=== PATIENT | female | born 1970 | race Caucasian/White ===

== ENCOUNTER 2021-01-31 15:34 | Inpatient (IN) | payer OTHER, SELFPAY ==
[~2021-01-31 15:34] MED LIST: Iopamidol-370 76% 500 ML 1 ML ONE
[2021-01-31] MEDS ORDERED: Midazolam HCl 2 mg/2 ml Vial ONE (15:42)
[2021-01-31] MEDS ORDERED: Fentanyl 100 MCG/2 ML VIAL ONE (15:48)
[2021-01-31 16:05] LABS: #Basophils 0.1 thou/uL (0.0-0.2); #Eosinphils 0.2 thou/uL (0.0-0.7); #Lymphocytes 3.7 thou/uL (1.20-3.40); #Monocytes 0.8 thou/uL (0.11-0.59); #Neutrophils 10.1 thou/uL (1.40-6.50); %Basophils 0.4 % (0.0-1.0); %Eosinophils 1.5 % (0.0-10.0); %Lymphocytes 24.7 % (21.0-51.0); %Monocytes 5.2 % (0.0-10.0); %Neutrophils 68.2 % (42.0-75.0); Hemoglobin 13.7 g/dL (12.0-16.0); Mean Corpuscular HGB CONC 31.9 g/dL (32.0-36.0); Mean Corpuscular Hemoglobin 26.4 pg (27.0-31.0); Mean Corpuscular Volume 82.8 fL (78.0-98.0); Mean Platelet Volume 10.3 fL (7.4-10.4); Platelet Count 232 thou/uL (130-400); RBC Distribution Width 14.1 % (11.5-14.5); Red Blood Cell (RBC) Count 5.19 mill/uL (4.20-5.40); White Blood Cell (WBC) Count 14.8 thou/uL (4.8-10.8)
[2021-01-31 16:21] LABS: ALT (SGPT) 23 U/L (8-55); AST (SGOT) 26 U/L (5-34); Albumin 4.2 g/dL (3.5-5.0); Alkaline Phosphatase 104 U/L (40-110); Anion Gap 19 mmol/L (10-20); BUN (Urea Nitrogen) 15 mg/dL (9.8-20.1); Bilirubin, Total 0.5 mg/dL (0.2-1.2); Calc. Creatinine Clearance 0 mL/min (70-130); Calcium 9.6 mg/dL (7.8-10.44); Carbon Dioxide 17 mmol/L (22-29); Chloride 106 mmol/L (98-107); Globulin 3.2 g/dL (2.4-3.5); Glucose 132 mg/dL (70-105); Potassium 3.6 mmol/L (3.5-5.1); Protein, Total 7.4 g/dL (6.0-8.3); Sodium 138 mmol/L (136-145)
[2021-01-31] MEDS ORDERED: Ketorolac Tromethamine 30 MG/ML VIAL ONE (16:31)
[2021-01-31] MEDS ORDERED: Naloxone HCl 0.4 mg/ml Vial IV PRN (16:32)
[2021-01-31] MEDS ORDERED: Ondansetron PF 4 MG/2 ML Vial IVP PRN (16:32)
[2021-01-31] MEDS ORDERED: Promethazine HCl 25 MG/ML VIAL IM PRN (16:32)
[2021-01-31] MEDS ORDERED: diphenhydrAMINE 25 MG CAP PO PRN (16:32)
[2021-01-31] MEDS ORDERED: Ketorolac Tromethamine 30 MG/ML VIAL IVP PRN (16:32)
[2021-01-31] MEDS ORDERED: diphenhydrAMINE 50 MG/ML VIAL IVP PRN (16:32)
[2021-01-31] MEDS ORDERED: diphenhydrAMINE 50 MG/ML VIAL IM PRN (16:32)
[2021-01-31] MEDS ORDERED: Communication Order-Pharmacy FS SCH (16:45)
[2021-01-31] MEDS ORDERED: Dextrose 50% Abboject 50 ML SYRINGE SLOW IVP PRN (16:58)
[2021-01-31] MEDS ORDERED: Dextrose 5% in Water 1,000 ML IV PRN (16:58)
[2021-01-31] MEDS ORDERED: hydrALAZINE 20 MG/ML VIAL SLOW IVP PRN (16:58)
[2021-01-31 17:31] LABS: Phosphorus 2.1 mg/dL (2.3-4.7)
[2021-01-31] MEDS ORDERED: Morphine 4 MG/ML VIAL ONE (17:32)
[2021-01-31] MEDS ORDERED: Ondansetron PF 4 MG/2 ML Vial ONE (17:39)
[2021-01-31] MEDS ORDERED: Magnesium Sulfate 2 GM in Sodium Chloride 0.9% 100 ML IVPB SCH (17:45)
[2021-01-31] MEDS ORDERED: Potassium Phosphate 30 MMOL, Magnesium Sulfate 2 GM in Sodium Chloride 0.9% 250 ML IVPB SCH (18:30)
[2021-01-31] MEDS: Sodium Chloride 0.9% 1,000 ML IV SCH (20:15)
[2021-01-31] MEDS: Famotidine 20 MG TAB PO SCH (20:16)
[2021-01-31] MEDS: HYDROmorphone 10 mg/100 ml CADD IVPB PRN (20:20)
[2021-01-31 22:41] VITALS: BMI 36.7
[2021-02-01] MEDS: Sodium Chloride 0.9% 1,000 ML IV SCH ×3 (05:02→14:02)
[2021-02-01 06:20] LABS: #Eosinphils 0.1 thou/uL (0.0-0.7); #Lymphocytes 1.3 thou/uL (1.20-3.40); #Monocytes 0.6 thou/uL (0.11-0.59); #Neutrophils 3.8 thou/uL (1.40-6.50); %Basophils 0.6 % (0.0-1.0); %Eosinophils 1.1 % (0.0-10.0); %Lymphocytes 23.3 % (21.0-51.0); %Monocytes 9.6 % (0.0-10.0); %Neutrophils 65.4 % (42.0-75.0); Mean Corpuscular HGB CONC 31.3 g/dL (32.0-36.0); Mean Corpuscular Hemoglobin 26.3 pg (27.0-31.0); Mean Corpuscular Volume 84.1 fL (78.0-98.0); Mean Platelet Volume 10.4 fL (7.4-10.4); Platelet Count 152 thou/uL (130-400); RBC Distribution Width 14.2 % (11.5-14.5); Red Blood Cell (RBC) Count 4.18 mill/uL (4.20-5.40); White Blood Cell (WBC) Count 5.8 thou/uL (4.8-10.8)
[2021-02-01 07:05] LABS: Anion Gap 12 mmol/L (10-20); BUN (Urea Nitrogen) 18 mg/dL (9.8-20.1); Calc. Creatinine Clearance 150 mL/min (70-130); Calcium 8.4 mg/dL (7.8-10.44); Carbon Dioxide 23 mmol/L (22-29); Chloride 108 mmol/L (98-107); Glucose 95 mg/dL (70-105); Magnesium 2.3 mg/dL (1.6-2.6); Phosphorus 4.8 mg/dL (2.3-4.7); Potassium 4.2 mmol/L (3.5-5.1); Sodium 139 mmol/L (136-145)
[2021-02-01] MEDS: Polyethylene Glycol 3350 17 GM Packet PO SCH (09:12)
[2021-02-01] MEDS: Famotidine 20 MG TAB PO SCH ×2 (09:12→21:25)
[2021-02-01] MEDS: Senokot 8.6 MG TAB PO SCH (09:12)
[2021-02-01] MEDS: Ketorolac Tromethamine 30 MG/ML VIAL IVP SCH ×2 (11:45→18:21)
[2021-02-01] MEDS: traMADol HCl 50 MG TAB PO SCH ×2 (11:45→18:20)
[2021-02-01] MEDS: Acetaminophen 500 MG TAB PO SCH ×3 (11:45→19:41)
[2021-02-01] MEDS: Gabapentin 300 MG CAP PO SCH ×2 (14:01→21:25)
[2021-02-02] MEDS: traMADol HCl 50 MG TAB PO SCH ×4 (00:56→18:03)
[2021-02-02] MEDS: Acetaminophen 500 MG TAB PO SCH ×4 (01:00→18:00)
[2021-02-02] MEDS: Ketorolac Tromethamine 30 MG/ML VIAL IVP SCH ×2 (01:01→04:17)
[2021-02-02] MEDS: Sodium Chloride 0.9% 1,000 ML IV SCH (04:19)
[2021-02-02] MEDS: HYDROmorphone 10 mg/100 ml CADD IVPB PRN (04:24)
[2021-02-02 05:50] LABS: Hemoglobin 10.1 g/dL (12.0-16.0)
[2021-02-02] MEDS: Famotidine 20 MG TAB PO SCH ×2 (08:49→20:58)
[2021-02-02] MEDS: Gabapentin 300 MG CAP PO SCH ×2 (08:49→20:58)
[2021-02-02] MEDS: Senokot 8.6 MG TAB PO SCH (08:52)
[2021-02-02] MEDS: Polyethylene Glycol 3350 17 GM Packet PO SCH (08:52)
[2021-02-02 12:38] LABS: SARS-CoV-2 PCR NAA for Saliva Not Detected (NotDetected)
[2021-02-02] MEDS: Ibuprofen 600 MG TAB PO SCH ×2 (15:47→18:01)
[2021-02-02] MEDS: Ibuprofen 200 MG TAB PO SCH (20:57)
[2021-02-03] MEDS: Acetaminophen 500 MG TAB PO SCH ×4 (00:11→17:04)
[2021-02-03] MEDS: Ibuprofen 200 MG TAB PO SCH ×7 (00:11→20:37)
[2021-02-03] MEDS: traMADol HCl 50 MG TAB PO SCH ×4 (00:11→17:05)
[2021-02-03] MEDS: traMADol HCl 50 MG TAB PO PRN ×3 (05:14→17:05)
[2021-02-03 05:27] LABS: #Eosinphils 0.2 thou/uL (0.0-0.7); #Lymphocytes 1.2 thou/uL (1.20-3.40); #Monocytes 0.4 thou/uL (0.11-0.59); #Neutrophils 2.7 thou/uL (1.40-6.50); %Basophils 0.6 % (0.0-1.0); %Eosinophils 5.1 % (0.0-10.0); %Monocytes 9.2 % (0.0-10.0); %Neutrophils 59.1 % (42.0-75.0); Hemoglobin 9.9 g/dL (12.0-16.0); Mean Corpuscular HGB CONC 32.7 g/dL (32.0-36.0); Mean Corpuscular Hemoglobin 26.9 pg (27.0-31.0); Mean Corpuscular Volume 82.5 fL (78.0-98.0); Mean Platelet Volume 9.9 fL (7.4-10.4); Platelet Count 120 thou/uL (130-400); RBC Distribution Width 13.9 % (11.5-14.5); Red Blood Cell (RBC) Count 3.69 mill/uL (4.20-5.40); White Blood Cell (WBC) Count 4.6 thou/uL (4.8-10.8)
[2021-02-03] MEDS: Famotidine 20 MG TAB PO SCH (08:41)
[2021-02-03] MEDS: Cyclobenzaprine 10 MG TAB PO PRN (08:41)
[2021-02-03] MEDS: Polyethylene Glycol 3350 17 GM Packet PO SCH (08:42)
[2021-02-03] MEDS: Senokot 8.6 MG TAB PO SCH (08:42)
[2021-02-03] MEDS: Gabapentin 300 MG CAP PO SCH ×2 (08:42→20:37)
[2021-02-03] MEDS: Sodium Chloride 0.9% 1,000 ML IV SCH (11:08)
[2021-02-04] MEDS: traMADol HCl 50 MG TAB PO SCH ×4 (00:12→17:20)
[2021-02-04] MEDS: Ibuprofen 200 MG TAB PO SCH ×6 (00:13→20:12)
[2021-02-04] MEDS: Acetaminophen 500 MG TAB PO SCH ×4 (00:13→17:21)
[2021-02-04 05:38] LABS: #Basophils 0.1 thou/uL (0.0-0.2); #Eosinphils 0.3 thou/uL (0.0-0.7); #Lymphocytes 1.1 thou/uL (1.20-3.40); #Monocytes 0.4 thou/uL (0.11-0.59); #Neutrophils 2.1 thou/uL (1.40-6.50); %Basophils 1.6 % (0.0-1.0); %Eosinophils 8.2 % (0.0-10.0); %Lymphocytes 27.2 % (21.0-51.0); %Monocytes 10.5 % (0.0-10.0); %Neutrophils 52.5 % (42.0-75.0); Hemoglobin 10.1 g/dL (12.0-16.0); Mean Corpuscular HGB CONC 32.4 g/dL (32.0-36.0); Mean Corpuscular Hemoglobin 27.3 pg (27.0-31.0); Mean Platelet Volume 9.9 fL (7.4-10.4); Platelet Count 141 thou/uL (130-400); RBC Distribution Width 13.9 % (11.5-14.5); White Blood Cell (WBC) Count 3.9 thou/uL (4.8-10.8)
[2021-02-04] MEDS: traMADol HCl 50 MG TAB PO PRN ×2 (07:18→13:19)
[2021-02-04] MEDS: Gabapentin 300 MG CAP PO SCH ×2 (08:51→20:11)
[2021-02-04] MEDS: Senokot 8.6 MG TAB PO SCH (08:53)
[2021-02-04] MEDS: Polyethylene Glycol 3350 17 GM Packet PO SCH (08:54)
[2021-02-04] MEDS: Sodium Chloride 0.9% 1,000 ML IV SCH (10:15)
[2021-02-04] MEDS: Cyclobenzaprine 10 MG TAB PO PRN ×2 (13:24→19:43)
[2021-02-04] MEDS: Enoxaparin Sodium 40 MG/0.4 ML SYRINGE SC SCH (20:11)
[2021-02-05] MEDS: traMADol HCl 50 MG TAB PO SCH ×5 (00:28→23:34)
[2021-02-05] MEDS: Ibuprofen 200 MG TAB PO SCH ×6 (00:28→21:27)
[2021-02-05] MEDS: Acetaminophen 500 MG TAB PO SCH ×3 (00:29→19:57)
[2021-02-05] MEDS: traMADol HCl 50 MG TAB PO PRN (07:42)
[2021-02-05] MEDS: Cyclobenzaprine 10 MG TAB PO PRN ×2 (08:48→21:26)
[2021-02-05] MEDS: Gabapentin 300 MG CAP PO SCH (08:48)
[2021-02-05] MEDS: Senokot 8.6 MG TAB PO SCH (08:51)
[2021-02-05] MEDS: Polyethylene Glycol 3350 17 GM Packet PO SCH (08:52)
[2021-02-05] MEDS: Acetaminophen 325 MG TAB PO SCH ×3 (13:51→23:34)
[2021-02-05] MEDS: cloNIDine 0.1 MG TAB PO SCH ×2 (18:25→23:35)
[2021-02-05] MEDS: Pregabalin 75 MG CAP PO SCH (21:26)
[2021-02-05] MEDS: Enoxaparin Sodium 40 MG/0.4 ML SYRINGE SC SCH (21:27)
[2021-02-06] MEDS: Ibuprofen 200 MG TAB PO SCH ×6 (01:41→20:42)
[2021-02-06] MEDS: Acetaminophen 325 MG TAB PO SCH ×3 (05:52→17:20)
[2021-02-06] MEDS: traMADol HCl 50 MG TAB PO SCH ×3 (05:53→17:21)
[2021-02-06] MEDS: cloNIDine 0.1 MG TAB PO SCH ×3 (05:55→17:22)
[2021-02-06 06:01] LABS: #Eosinphils 0.6 thou/uL (0.0-0.7); #Lymphocytes 1.4 thou/uL (1.20-3.40); #Monocytes 0.6 thou/uL (0.11-0.59); #Neutrophils 4.1 thou/uL (1.40-6.50); %Basophils 0.2 % (0.0-1.0); %Eosinophils 8.3 % (0.0-10.0); %Lymphocytes 20.8 % (21.0-51.0); %Monocytes 9.6 % (0.0-10.0); %Neutrophils 61.1 % (42.0-75.0); Mean Corpuscular HGB CONC 32.6 g/dL (32.0-36.0); Mean Corpuscular Hemoglobin 27.3 pg (27.0-31.0); Mean Corpuscular Volume 83.7 fL (78.0-98.0); Mean Platelet Volume 9.5 fL (7.4-10.4); Platelet Count 177 thou/uL (130-400); Red Blood Cell (RBC) Count 3.67 mill/uL (4.20-5.40); White Blood Cell (WBC) Count 6.7 thou/uL (4.8-10.8)
[2021-02-06] MEDS: DULoxetine 30 MG CAP PO SCH (08:27)
[2021-02-06] MEDS: Pregabalin 75 MG CAP PO SCH ×2 (08:27→20:41)
[2021-02-06] MEDS: Senokot 8.6 MG TAB PO SCH (08:28)
[2021-02-06] MEDS: Senokot S 8.6-50 MG TAB PO SCH ×2 (08:28→20:44)
[2021-02-06] MEDS: Polyethylene Glycol 3350 17 GM Packet PO SCH (08:28)
[2021-02-06] MEDS ORDERED: hydrOXYzine Pamoate 25 mg Capsule PO PRN (08:52)
[2021-02-06] MEDS: Cyclobenzaprine 10 MG TAB PO PRN (13:00)
[2021-02-06] MEDS: Enoxaparin Sodium 40 MG/0.4 ML SYRINGE SC SCH (20:43)
[2021-02-07] MEDS: traMADol HCl 50 MG TAB PO SCH ×4 (00:15→17:40)
[2021-02-07] MEDS: cloNIDine 0.1 MG TAB PO SCH ×4 (01:03→17:45)
[2021-02-07] MEDS: Acetaminophen 325 MG TAB PO SCH ×4 (01:03→17:38)
[2021-02-07] MEDS: Ibuprofen 200 MG TAB PO SCH ×4 (02:30→15:31)
[2021-02-07] MEDS: Pregabalin 75 MG CAP PO SCH ×2 (08:35→20:33)
[2021-02-07] MEDS: DULoxetine 30 MG CAP PO SCH (08:36)
[2021-02-07] MEDS: Polyethylene Glycol 3350 17 GM Packet PO SCH (08:40)
[2021-02-07] MEDS: Senokot 8.6 MG TAB PO SCH (08:40)
[2021-02-07] MEDS: Senokot S 8.6-50 MG TAB PO SCH ×2 (08:40→20:34)
[2021-02-07] MEDS: Cyclobenzaprine 10 MG TAB PO PRN (09:16)
[2021-02-07] MEDS: Enoxaparin Sodium 40 MG/0.4 ML SYRINGE SC SCH (20:32)
[2021-02-08] MEDS: traMADol HCl 50 MG TAB PO SCH ×5 (00:23→23:33)
[2021-02-08] MEDS: Acetaminophen 325 MG TAB PO SCH ×5 (00:24→23:32)
[2021-02-08] MEDS: Ibuprofen 200 MG TAB PO SCH ×4 (00:25→23:34)
[2021-02-08] MEDS: cloNIDine 0.1 MG TAB PO SCH ×5 (01:10→23:31)
[2021-02-08] MEDS ORDERED: Morphine 2 MG/ML VIAL SLOW IVP SCH (09:00)
[2021-02-08] MEDS ORDERED: Ketorolac Tromethamine 30 MG/ML VIAL IVP SCH (09:00)
[2021-02-08] MEDS: Cyclobenzaprine 10 MG TAB PO PRN ×2 (09:12→17:40)
[2021-02-08] MEDS: Polyethylene Glycol 3350 17 GM Packet PO SCH (09:12)
[2021-02-08] MEDS: Pregabalin 75 MG CAP PO SCH ×2 (09:12→20:55)
[2021-02-08] MEDS: DULoxetine 30 MG CAP PO SCH ×2 (09:12→09:18)
[2021-02-08] MEDS: Senokot S 8.6-50 MG TAB PO SCH ×2 (09:15→20:55)
[2021-02-08] MEDS: Enoxaparin Sodium 40 MG/0.4 ML SYRINGE SC SCH (20:54)
[2021-02-09] MEDS: cloNIDine 0.1 MG TAB PO SCH ×5 (05:26→23:18)
[2021-02-09] MEDS: traMADol HCl 50 MG TAB PO SCH ×4 (05:31→23:18)
[2021-02-09] MEDS: Acetaminophen 325 MG TAB PO SCH ×4 (05:32→23:17)
[2021-02-09] MEDS: Pregabalin 75 MG CAP PO SCH ×2 (08:49→20:16)
[2021-02-09] MEDS: Ibuprofen 200 MG TAB PO SCH ×3 (08:50→23:18)
[2021-02-09] MEDS: DULoxetine 30 MG CAP PO SCH (08:50)
[2021-02-09] MEDS: Polyethylene Glycol 3350 17 GM Packet PO SCH (08:51)
[2021-02-09] MEDS: Senokot S 8.6-50 MG TAB PO SCH ×2 (08:51→20:16)
[2021-02-09] MEDS: Enoxaparin Sodium 40 MG/0.4 ML SYRINGE SC SCH (20:17)
[2021-02-10] MEDS: traMADol HCl 50 MG TAB PO SCH ×4 (05:20→23:36)
[2021-02-10] MEDS: cloNIDine 0.1 MG TAB PO SCH ×4 (05:20→23:38)
[2021-02-10] MEDS: Acetaminophen 325 MG TAB PO SCH ×4 (05:21→23:37)
[2021-02-10] MEDS: Pregabalin 75 MG CAP PO SCH ×2 (09:43→20:25)
[2021-02-10] MEDS: DULoxetine 30 MG CAP PO SCH (09:43)
[2021-02-10] MEDS: Polyethylene Glycol 3350 17 GM Packet PO SCH (09:43)
[2021-02-10] MEDS: Senokot S 8.6-50 MG TAB PO SCH ×2 (09:44→20:28)
[2021-02-10] MEDS: Ibuprofen 200 MG TAB PO SCH ×3 (09:48→23:38)
[2021-02-10] MEDS: Acetaminophen/Codeine 30-300mg Tablet PO PRN (10:03)
[2021-02-10] MEDS: Enoxaparin Sodium 40 MG/0.4 ML SYRINGE SC SCH (20:26)
[2021-02-11] MEDS: traMADol HCl 50 MG TAB PO SCH ×4 (05:59→23:48)
[2021-02-11] MEDS: cloNIDine 0.1 MG TAB PO SCH ×4 (06:00→23:48)
[2021-02-11] MEDS: Acetaminophen 325 MG TAB PO SCH ×4 (06:00→23:48)
[2021-02-11] MEDS: DULoxetine 30 MG CAP PO SCH (09:11)
[2021-02-11] MEDS: Senokot S 8.6-50 MG TAB PO SCH ×2 (09:11→20:57)
[2021-02-11] MEDS: Pregabalin 75 MG CAP PO SCH ×2 (09:11→20:55)
[2021-02-11] MEDS: Polyethylene Glycol 3350 17 GM Packet PO SCH (09:11)
[2021-02-11] MEDS: Ibuprofen 200 MG TAB PO SCH ×3 (09:12→23:47)
[2021-02-11] MEDS: Acetaminophen/Codeine 30-300mg Tablet PO PRN (19:19)
[2021-02-11] MEDS: Enoxaparin Sodium 40 MG/0.4 ML SYRINGE SC SCH (20:55)
[2021-02-12] MEDS: cloNIDine 0.1 MG TAB PO SCH ×3 (05:50→18:03)
[2021-02-12] MEDS: Acetaminophen 325 MG TAB PO SCH ×3 (05:50→18:03)
[2021-02-12] MEDS: traMADol HCl 50 MG TAB PO SCH ×3 (05:51→16:40)
[2021-02-12] MEDS: DULoxetine 30 MG CAP PO SCH (09:53)
[2021-02-12] MEDS: Senokot S 8.6-50 MG TAB PO SCH ×2 (09:53→21:10)
[2021-02-12] MEDS: Pregabalin 75 MG CAP PO SCH ×2 (09:54→21:10)
[2021-02-12] MEDS: Polyethylene Glycol 3350 17 GM Packet PO SCH (09:54)
[2021-02-12] MEDS: Ibuprofen 200 MG TAB PO SCH ×2 (09:55→16:39)
[2021-02-12 11:41] LABS: Bilirubin Negative (Negative); Blood, Urine 3+ (Negative); Clarity Turbid (Clear); Glucose, Urine (Dipstick) Normal (Negative); Ketone, Urine Negative (Negative); Leukocyte 75 Leu/uL (Negative); Nitrite Negative (Negative); Protein, Urine (Dipstick) 30 mg/dL (Neg-Trace); RBC/HPF Greater than 50 HPF (0-3); Specific Gravity, Urine 1.017 (1.002-1.036); Squamous Epithelial None Seen HPF (0-3); Urobilinogen Normal mg/dL (Less than 2); pH, Urine 7.5 (5.0-9.0)
[2021-02-12 11:54] LABS: Bacteria/HPF 1+ HPF (None Seen); Triple Phosphate Crystal 1+ HPF (None Seen)
[2021-02-12 11:55] LABS: Urine Culture Reflex Yes Yes
[2021-02-12] MEDS: Nitrofurantoin Monohyd/M-Cryst 100 MG CAP PO SCH ×2 (16:41→21:10)
[2021-02-12] MEDS: Enoxaparin Sodium 40 MG/0.4 ML SYRINGE SC SCH (21:10)
[2021-02-13] MEDS: cloNIDine 0.1 MG TAB PO SCH ×4 (00:08→17:13)
[2021-02-13] MEDS: traMADol HCl 50 MG TAB PO SCH ×4 (00:13→15:59)
[2021-02-13] MEDS: Acetaminophen 325 MG TAB PO SCH ×4 (00:13→17:13)
[2021-02-13] MEDS: Ibuprofen 200 MG TAB PO SCH ×3 (04:18→15:58)
[2021-02-13] MEDS: Senokot S 8.6-50 MG TAB PO SCH (08:28)
[2021-02-13] MEDS: Nitrofurantoin Monohyd/M-Cryst 100 MG CAP PO SCH (08:29)
[2021-02-13] MEDS: Polyethylene Glycol 3350 17 GM Packet PO SCH (08:29)
[2021-02-13] MEDS: DULoxetine 30 MG CAP PO SCH (08:29)
[2021-02-13] MEDS: Pregabalin 75 MG CAP PO SCH (08:29)
[2021-02-13] MEDS: Acetaminophen/Codeine 30-300mg Tablet PO PRN (14:07)
[2021-02-13 15:53] VITALS: TEMP 97.6
[2021-02-13 17:13] VITALS: BP 143/86
== END 2021-02-13 17:20 | disposition home or self-care (01) | DRG 552 ==
LOC: ERS 15:34 → SURG A 17:01
PROVIDERS: ADMIT Surgery; ATTEND Surgery
DX: S32.10XA Unspecified fracture of sacrum, initial encounter for closed fracture (principal); S32.019A Unspecified fracture of first lumbar vertebra, initial encounter for closed fracture; S32.592A Other specified fracture of left pubis, initial encounter for closed fracture; S32.029A Unspecified fracture of second lumbar vertebra, initial encounter for closed fracture; S32.039A Unspecified fracture of third lumbar vertebra, initial encounter for closed fracture; S32.049A Unspecified fracture of fourth lumbar vertebra, initial encounter for closed fracture; S32.059A Unspecified fracture of fifth lumbar vertebra, initial encounter for closed fracture; D62 Acute posthemorrhagic anemia; S32.591A Other specified fracture of right pubis, initial encounter for closed fracture; S30.0XXA Contusion of lower back and pelvis, initial encounter; M79.2 Neuralgia and neuritis, unspecified; Z20.822 Contact with and (suspected) exposure to COVID-19; L57.0 Actinic keratosis; R31.9 Hematuria, unspecified; W55.19XA Other contact with horse, initial encounter; Z88.2 Allergy status to sulfonamides
CPT/HCPCS: 36415; 51702; 70450; 70486; 71045; 71260; 72125; 72170; 74177; 80048; 80053; 81001; 83735; 84100; 85014; 85018; 85025; 86850; 86900; 86901; 87086; 87635; 96374; 96375; G0390; J1650; J1885; J2250; J2270; J2405; J3010; J3475; J7030; Q9967; U0003; U0005

== ENCOUNTER 2021-03-11 05:37 | Emergency (ER) | payer OTHER, SELFPAY ==
[2021-03-11 06:41] LABS: #Eosinphils 0.2 thou/uL (0.0-0.7); #Lymphocytes 1.3 thou/uL (1.20-3.40); #Monocytes 0.3 thou/uL (0.11-0.59); #Neutrophils 4.3 thou/uL (1.40-6.50); %Basophils 0.3 % (0.0-1.0); %Eosinophils 2.8 % (0.0-10.0); %Lymphocytes 21.4 % (21.0-51.0); %Monocytes 4.5 % (0.0-10.0); %Neutrophils 70.9 % (42.0-75.0); Hemoglobin 14.5 g/dL (12.0-16.0); Mean Corpuscular HGB CONC 32.7 g/dL (32.0-36.0); Mean Corpuscular Hemoglobin 26.9 pg (27.0-31.0); Mean Corpuscular Volume 82.4 fL (78.0-98.0); Mean Platelet Volume 9.3 fL (7.4-10.4); Platelet Count 244 thou/uL (130-400); RBC Distribution Width 15.4 % (11.5-14.5); Red Blood Cell (RBC) Count 5.39 mill/uL (4.20-5.40); White Blood Cell (WBC) Count 6.1 thou/uL (4.8-10.8)
[2021-03-11 06:57] LABS: ALT (SGPT) 11 U/L (8-55); AST (SGOT) 12 U/L (5-34); Albumin 4.5 g/dL (3.5-5.0); Alkaline Phosphatase 152 U/L (40-110); Anion Gap 13 mmol/L (10-20); BUN (Urea Nitrogen) 12 mg/dL (9.8-20.1); Bilirubin, Total 0.8 mg/dL (0.2-1.2); Calc. Creatinine Clearance 0 mL/min (70-130); Calcium 10.1 mg/dL (7.8-10.44); Carbon Dioxide 28 mmol/L (22-29); Chloride 101 mmol/L (98-107); Globulin 3.7 g/dL (2.4-3.5); Glucose 118 mg/dL (70-105); Lipase 24 U/L (8-78); Potassium 3.7 mmol/L (3.5-5.1); Protein, Total 8.2 g/dL (6.0-8.3); Sodium 138 mmol/L (136-145)
[2021-03-11] MEDS ORDERED: HYDROmorphone 0.5 MG/0.5 ML SYRINGE ONE (07:58)
[2021-03-11] MEDS ORDERED: Ondansetron PF 4 MG/2 ML Vial ONE (07:58)
[2021-03-11 08:34] LABS: Bilirubin Negative (Negative); Blood, Urine Negative (Negative); Clarity Extra Turbid (Clear); Glucose, Urine (Dipstick) Normal (Negative); Ketone, Urine Negative (Negative); Leukocyte 75 Leu/uL (Negative); Nitrite Negative (Negative); Protein, Urine (Dipstick) Negative (Neg-Trace); RBC/HPF None Seen HPF (0-3); Specific Gravity, Urine 1.019 (1.002-1.036); Urobilinogen Normal mg/dL (Less than 2)
[2021-03-11 08:35] LABS: Bacteria/HPF 1+ HPF (None Seen)
[2021-03-11] MEDS ORDERED: Acetaminophen 500 MG TAB ONE (09:22)
[2021-03-11] MEDS ORDERED: Iopamidol-370 76% 500 ML 1 ML ONE (11:42)
== END 2021-03-11 12:32 | disposition home or self-care (01) ==
LOC: ERS 05:37
DX: R11.2 Nausea with vomiting, unspecified (principal); M25.471 Effusion, right ankle; R10.9 Unspecified abdominal pain; Z85.828 Personal history of other malignant neoplasm of skin; Z86.73 Personal history of transient ischemic attack (TIA), and cerebral infarction without residual deficits
CPT/HCPCS: 36415; 71045; 74177; 80053; 81003; 81015; 83690; 84484; 85025; 93005; 96374; 96375; J1170; J2405; Q9967

== ENCOUNTER 2025-01-27 09:03 | Emergency (ER) | payer SELFPAY ==
[2025-01-27] MEDS ORDERED: HYDROcodone/Acetaminophen 5/325 mg Tablet ONE (10:02)
== END 2025-01-27 10:45 | disposition home or self-care (01) ==
LOC: ERS 09:03
DX: S86.911A Strain of unspecified muscle(s) and tendon(s) at lower leg level, right leg, initial encounter (principal); Z87.891 Personal history of nicotine dependence; X50.1XXA Overexertion from prolonged static or awkward postures, initial encounter
CPT/HCPCS: 99283